=== PATIENT | male | born 1975 | race Hispanic/Latino ===

== ENCOUNTER 2024-11-11 12:36 | Emergency (ER) | payer OTHER, SELFPAY ==
[~2024-11-11 12:36] MED LIST: Iopamidol 300 61% 100 ML VIAL FS ONE
[2024-11-11] MEDS ORDERED: Ondansetron PF 4 MG/2 ML Vial ONE (13:26)
[2024-11-11 13:38] LABS: ALT (SGPT) 14 U/L (Less than 45); AST (SGOT) 17 U/L (11-34); Albumin 4.1 g/dL (3.1-4.5); Alkaline Phosphatase 53 U/L (40-110); Anion Gap 18 mmol/L (10-20); BUN (Urea Nitrogen) 12 mg/dL (8.4-25.7); Bilirubin, Total 1.1 mg/dL (0.3-1.2); Calc. Creatinine Clearance 0 mL/min (70-130); Calcium 9.1 mg/dL (7.8-10.44); Carbon Dioxide 21 mmol/L (22-29); Chloride 100 mmol/L (98-107); Globulin 3.3 g/dL (2.4-3.5); Glucose 178 mg/dL (70-105); Lipase 10 U/L (8-78); Potassium 3.6 mmol/L (3.5-5.1); Sodium 135 mmol/L (136-145)
[2024-11-11 13:42] LABS: Hematocrit 43.3 % (38.8-50.0); Hemoglobin 15.7 g/dL (13.5-17.5); Mean Corpuscular Hemoglobin 32.0 pg (27.0-33.0); Mean Corpuscular Volume 88.2 fL (81.2-95.1); Platelet Count 193 10x3/uL (150-450); Red Blood Cell (RBC) Count 4.91 10x6/uL (4.32-5.72); White Blood Cell (WBC) Count 20.46 10x3/uL (3.5-10.5)
[2024-11-11 13:53] LABS: Magnesium 1.4 mg/dL (1.6-2.6)
[2024-11-11] MEDS ORDERED: Magnesium 2 GM/50 ML BAG (IN WATER) ONE (14:00)
[2024-11-11 14:06] LABS: MDiff Complete? YES; Platelet Adequacy Comment Platelets Normal; RBC Morphology Within Normal Limits
[2024-11-11 14:09] LABS: Troponin I Less than 0.010 ng/mL (< 0.028)
[2024-11-11 15:15] LABS: Glucose, Urine (Dipstick) Normal (Negative); Leukocyte Negative (Negative); Protein, Urine (Dipstick) Negative (Neg-Trace); Specific Gravity, Urine 1.010 (1.005-1.030)
[2024-11-11 15:25] LABS: Bacteria/HPF Rare-Few HPF (None Seen); CAUTI Indications for Culture Fever or rigors; RBC/HPF None Seen HPF (0-3); WBC/HPF None Seen HPF (0-3)
[2024-11-11 15:26] LABS: Urine Culture Reflex No No
[2024-11-11] MEDS ORDERED: Acetaminophen 500 MG TAB ONE (16:03)
== END 2024-11-11 16:20 | disposition home or self-care (01) ==
LOC: CSHERS 12:36
DX: A08.4 Viral intestinal infection, unspecified (principal); E86.0 Dehydration; F17.210 Nicotine dependence, cigarettes, uncomplicated
CPT/HCPCS: 36415; 71045; 74177; 80053; 81001; 83605; 83690; 83735; 84484; 85025; 85379; 87040; 87077; 87086; 87149; 87186; 93005; 94760; 96365; 96375; J2270; J2405; J3475; Q9967